=== PATIENT | male | born 1980 | race Caucasian/White ===

== ENCOUNTER 2019-12-31 16:27 | Emergency (ER) | payer OTHER ==
[2019-12-31] MEDS ORDERED: HYDROmorphone 0.5 MG/0.5 ML SYRINGE IVP STA (16:30)
[2019-12-31] MEDS ORDERED: DIPH,PERTUS(ACELL)TETVAC-LF 0.5 ML VIAL IM ONE (16:30)
[2019-12-31] MEDS ORDERED: SODIUM CHLORIDE 0.9% 1,000 ML IV STA (16:30)
--- NOTE | 2019-12-31 16:33 | ED ---
Trauma HPI - General Stated Complaint: chainsaw lacs Source: RN notes reviewed, old records reviewed Limitations: no limitations - History of Present Illness Initial Comments: This is a 39-year-old male DF for evaluation patient is a for evaluation of lacerations. Lacerations left hand laceration left chin. Patient has no significant medical history no recent travel history no sick contacts Complaint: injury -: minutes(s) Loss of Consciousness: no Location: face Location - Extremities: Left: Hand Severity scale (1-10): 7 Consistency: constant Context: unsure Associated Symptoms: denies other symptoms Treatments Prior to Arrival: dressings, IV/IO, other medications - Related Data Allergies Allergy/AdvReac Type Severity Reaction Status Date / Time No Known Allergies Allergy Verified 12/31/19 16:37 Review of Systems ROS Statement: Those systems with pertinent positive or pertinent negative responses have been documented in the HPI. ROS Other: All systems not noted in ROS Statement are negative. General Exam General appearance: alert, in no apparent distress Head exam: Present: normocephalic, normal inspection. Absent: atraumatic (7 cm flap laceration) Eye exam: Present: normal appearance, PERRL, EOMI. Absent: scleral icterus, conjunctival injection, periorbital swelling ENT exam: Present: normal exam, mucous membranes moist Neck exam: Present: normal inspection. Absent: tenderness, meningismus, lymphadenopathy Respiratory exam: Present: normal lung sounds bilaterally. Absent: respiratory distress, wheezes, rales, rhonchi, stridor Cardiovascular Exam: Present: regular rate, normal rhythm, normal heart sounds. Absent: systolic murmur, diastolic murmur, rubs, gallop, clicks GI/Abdominal exam: Present: soft, normal bowel sounds. Absent: distended, tenderness, guarding, rebound, rigid Extremities exam: Present: normal inspection, full ROM, normal capillary refill. Absent: tenderness, pedal edema, joint swelling, calf tenderness Back exam: Present: normal inspection Neurological exam: Present: alert, oriented X3, CN II-XII intact Psychiatric exam: Present: normal affect, normal mood Skin exam: Present: warm, dry, intact, normal color. Absent: rash Course Vital Signs 12/31/19 12/31/19 16:34 18:23 Temperature 97.8 F 98.1 F Pulse Rate 59 L 95 Respiratory 18 18 Rate Blood Pressure 155/92 138/81 O2 Sat by Pulse 98 97 Oximetry - Reevaluation(s) Reevaluation #1: 12/31/19 16:33 Medical records reviewed Procedures - Laceration Laceration #1 Consent Obtained: verbal consent Indication: laceration Site: face (jaw) Size (cm): 7 Description: linear, flap Depth: simple, single layer, involves muscle layer Anesthetic Used: lidocaine 1%, with epi Anesthesia Technique: local infiltration Pre-repair: wound explored, irrigated extensively, wound margins revised Type of Sutures: nylon Size of Sutures: 3-0 Technique: simple, interrupted Patient Tolerated Procedure: well Medical Decision Making - Medical Decision Making 39 male DF for evaluation of laceration sustained both to abrasion left hand, 7 cm laceration to face, jaw area circular and stellate laceration is repaired here in the ER patient can be discharged - Radiology Data Radiology results: report reviewed (CT of patient will soft tissue neck negative for fracture, left hand x-rays negative for fracture), image reviewed Disposition Clinical Impression: Laceration, Laceration of jaw Narrative: chainsaw injury Disposition: HOME SELF-CARE Condition: Good Instructions (If sedation given, give patient instructions): Laceration (ED), Care For Your Stitches (ED) Is patient prescribed a controlled substance at d/c from ED?: No Referrals: None,Stated [Primary Care Provider] - 1-2 days
--- NOTE | 2019-12-31 17:06 | XR ---
EXAMINATION TYPE: XR wrist complete LT DATE OF EXAM: 12/31/2019 COMPARISON: NONE HISTORY: Laceration TECHNIQUE: 4 views FINDINGS: Carpal bones are intact. I see no fracture nor dislocation. Metacarpals are intact. Joint s paces appear normal. There is no sign of a foreign body. IMPRESSION: Negative left wrist exam.
--- NOTE | 2019-12-31 17:07 | XR ---
EXAMINATION TYPE: XR hand complete LT DATE OF EXAM: 12/31/2019 COMPARISON: NONE HISTORY: Laceration TECHNIQUE: 3 views FINDINGS: Metacarpals are intact. I see no fracture nor dislocation. There is no sign of radiopaque f oreign body. There is soft tissue deformity and possible laceration on the dorsum of the middle phala nx of the little finger. IMPRESSION: Possible laceration deformity. No fracture or foreign body seen.
--- NOTE | 2019-12-31 17:17 | CT ---
EXAMINATION TYPE: CT facial bones wo con DATE OF EXAM: 12/31/2019 COMPARISON: None HISTORY: Chin laceration from chain saw CT DLP: 514.8 mGycm Automated exposure control for dose reduction was used. Images were obtained from the bottom of the mandible to the top of the frontal sinuses without contra st. There is some soft tissue deformity consistent with laceration on the left side of the anterior brenda ble. There is 4 mm soft tissue density that could be chip fracture or foreign body. There is soft tis leah air bubbles. The mandibular ring is intact. There is small mandibular cortical defect on the left side anteriorly. The zygomatic arches are intact. There is fairly normal aeration of the maxillary s inuses. There is no evidence of a blowout fracture. Orbital margins are intact. There is no retro-orb ital mass. The globes are symmetric. Nasal bone is intact. There is minimal mucosal thickening left s tayla of the sphenoid sinus. Temporomandibular joints appear normal. IMPRESSION: Laceration deformity of the soft tissues of the anterior left side of the mandible. There is small an terior cortical defect of the anterior mandible on the left of midline seen on axial image 14 and cou ld be chip fracture.
[2019-12-31] MEDS ORDERED: LIDOCAINE 2%-EPI 1:100,000 20 ML VIAL SQ STA (17:22)
--- NOTE | 2019-12-31 17:26 | CT ---
EXAMINATION TYPE: CT soft tissue neck wo con DATE OF EXAM: 12/31/2019 COMPARISON: None HISTORY: Chin laceration from chain saw CT DLP: 222.3 mGycm Automated exposure control for dose reduction was used. Images obtained from the level of the orbits to the aortic arch without contrast. There is soft tissue deformity with air bubbles and small densities in the soft tissues related to la ceration at the anterior mandible on the left side. There is small mandible chip fracture cortical de fect. The submandibular salivary glands appear normal. Mandibular ring is intact. The parotid glands are symmetric. Exam limited by lack of contrast. I see no evidence of cervical adenopathy. Epiglottis is normal. Prevertebral soft tissues appear normal. Subglottic trachea appears normal. Thy roid gland appears normal. There are some emphysematous changes in the upper lobes at the lung apices . There is no sign of superior mediastinal adenopathy. There is no evidence of cervical lymphadenopat hy. Cervical spine is intact. There is narrowing of C5-6 disc space with mild spurring. The tongue ap pears normal. IMPRESSION: Laceration deformity anterior to the mandible on the left side. No significant abnormality of the cer vical soft tissues.
[2019-12-31] MEDS ORDERED: CEPHALEXIN 500MG STARTER PACK 4 CAP BTL PO STA (18:39)
[2019-12-31] MEDS ORDERED: traMADol 50 MG STARTER PACK 3 TAB BTL PO STA (18:39)
[2019-12-31] MEDS ORDERED: LIDOCAINE 1%-EPI 1:100,000 20 ML VIAL SQ STA (18:58)
[2019-12-31 19:00] VITALS: BP 152/87; PULSE 87; RESP 16; TEMP 98
== END 2019-12-31 18:58 | disposition home or self-care (01) ==
LOC: EC 16:27
DX: S01.81XA Laceration without foreign body of other part of head, initial encounter (principal); S61.412A Laceration without foreign body of left hand, initial encounter; W29.3XXA Contact with powered garden and outdoor hand tools and machinery, initial encounter; Y92.009 Unspecified place in unspecified non-institutional (private) residence as the place of occurrence of the external cause
CPT/HCPCS: 73110; 73130; 70486; 70490; 99284; 12014; 96365; 96375; J0690; J1170